=== PATIENT | male | born 1990 | race Caucasian/White ===

== ENCOUNTER 2017-11-02 15:27 | Emergency (ER) | payer SELFPAY ==
--- NOTE | 2017-11-02 16:38 | RAD ---
RADIOGRAPH CHEST 2 VIEWS: HISTORY: A 27-year-old male status post acute traumatic chest pain from fall. FINDINGS: There is no air space density, pulmonary edema, pleural effusion, pneumothorax, or cardiomegaly. IMPRESSION: No acute cardiopulmonary findings. sanam [] POS: [facility]
--- NOTE | 2017-11-02 16:40 | RAD ---
THREE VIEWS OF THE RIGHT SHOULDER: DATE: 11/02/17. COMPARISON: None. HISTORY: Fall, trauma, pain. FINDINGS: There is no widening of the AC or CC interspace. There is no displaced fracture or evidence of dislo cation. IMPRESSION: No acute findings. POS: [facility]
== END 2017-11-02 17:09 | disposition home or self-care (01) ==
LOC: ERS 15:27
DX: S23.41XA Sprain of ribs, initial encounter (principal); F17.210 Nicotine dependence, cigarettes, uncomplicated; W18.2XXA Fall in (into) shower or empty bathtub, initial encounter
CPT/HCPCS: 71046; 99406

== ENCOUNTER 2018-01-02 15:58 | Emergency (ER) | payer SELFPAY ==
--- NOTE | 2018-01-02 17:15 | RAD ---
LEFT SHOULDER THREE VIEWS' 01/02/18 HISTORY: Left shoulder pain. FINDINGS: Acromioclavicular and glenohumeral alignment are maintained. No acute fracture, dislocation, or aggre ssive osseous erosions. IMPRESSION: No acute osseous abnormalities are demonstrated. POS: [facility]
[2018-01-02] MEDS ORDERED: Diazepam 5 MG TAB ONE (17:47)
[2018-01-02] MEDS ORDERED: Ketorolac Tromethamine 30 MG/ML VIAL ONE (18:14)
== END 2018-01-02 18:43 | disposition home or self-care (01) ==
LOC: ERS 15:58
DX: M25.512 Pain in left shoulder (principal); F17.210 Nicotine dependence, cigarettes, uncomplicated
CPT/HCPCS: 96372; J1885

== ENCOUNTER 2023-04-10 11:59 | Emergency (ER) | payer SELFPAY ==
[2023-04-10 12:21] LABS: #Basophils 0.1 thou/uL (0.0-0.2); #Eosinphils 0.3 thou/uL (0.0-0.7); #Monocytes 0.7 thou/uL (0.11-0.59); #Neutrophils 5.6 thou/uL (1.40-6.50); %Basophils 1.1 % (0.0-1.0); %Lymphocytes 14.2 % (21.0-51.0); %Monocytes 8.6 % (0.0-10.0); %Neutrophils 71.7 % (42.0-75.0); Hemoglobin 13.2 g/dL (14.0-18.0); Mean Corpuscular HGB CONC 32.7 g/dL (32.0-36.0); Mean Corpuscular Hemoglobin 29.5 pg (27.0-31.0); Mean Corpuscular Volume 90.2 fl (78.0-98.0); Mean Platelet Volume 10.2 fL (7.4-10.4); Platelet Count 336 10x3/uL (130-400); RBC Distribution Width 15.9 % (11.5-14.5); Red Blood Cell (RBC) Count 4.48 mill/uL (4.70-6.10); White Blood Cell (WBC) Count 7.8 10x3/uL (4.8-10.8)
[2023-04-10 12:47] LABS: ALT (SGPT) 22 U/L (8-55); AST (SGOT) 24 U/L (5-34); Alkaline Phosphatase 79 U/L (40-110); Anion Gap 10 mmol/L (10-20); BUN (Urea Nitrogen) 15 mg/dL (8.9-20.6); Bilirubin, Total 0.5 mg/dL (0.2-1.2); Calc. Creatinine Clearance 0 mL/min (70-130); Calcium 8.8 mg/dL (7.8-10.44); Carbon Dioxide 22 mmol/L (22-29); Chloride 111 mmol/L (98-107); Estimated GFR 90; Globulin 2.8 g/dL (2.4-3.5); Glucose 125 mg/dL (70-105); Lipase 32 U/L (8-78); Potassium 4.2 mmol/L (3.5-5.1); Protein, Total 6.8 g/dL (6.0-8.3); Sodium 139 mmol/L (136-145)
== END 2023-04-10 13:45 | disposition home or self-care (01) ==
LOC: ERS 11:59
DX: R07.9 Chest pain, unspecified (principal); R06.02 Shortness of breath; F17.210 Nicotine dependence, cigarettes, uncomplicated
CPT/HCPCS: 36415; 71046; 80053; 83690; 84484; 85025; 93005

== ENCOUNTER 2023-04-20 17:53 | Inpatient (IN) | payer OTHER, SELFPAY ==
[2023-04-20] MEDS ORDERED: Ondansetron PF 4 MG/2 ML Vial IVP PRN (22:28)
[2023-04-20] MEDS ORDERED: Ondansetron ODT 4 MG TAB PO PRN (22:28)
[2023-04-20 22:46] VITALS: BMI 28.9
[2023-04-20 23:59] LABS: Magnesium 1.8 mg/dL (1.6-2.6)
[2023-04-21 06:50] LABS: #Basophils 0.1 thou/uL (0.0-0.2); #Eosinphils 0.4 thou/uL (0.0-0.7); #Monocytes 0.5 thou/uL (0.11-0.59); #Neutrophils 7.6 thou/uL (1.40-6.50); %Basophils 0.6 % (0.0-1.0); %Eosinophils 3.7 % (0.0-10.0); %Lymphocytes 10.9 % (21.0-51.0); %Monocytes 5.3 % (0.0-10.0); %Neutrophils 79.1 % (42.0-75.0); Hemoglobin 12.3 g/dL (14.0-18.0); Mean Corpuscular HGB CONC 32.3 g/dL (32.0-36.0); Mean Corpuscular Hemoglobin 29.5 pg (27.0-31.0); Mean Corpuscular Volume 91.4 fl (78.0-98.0); Platelet Count 274 10x3/uL (130-400); RBC Distribution Width 17.6 % (11.5-14.5); Red Blood Cell (RBC) Count 4.17 mill/uL (4.70-6.10); White Blood Cell (WBC) Count 9.6 10x3/uL (4.8-10.8)
[2023-04-21 07:13] LABS: ALT (SGPT) 83 U/L (8-55); AST (SGOT) 30 U/L (5-34); Albumin 3.3 g/dL (3.5-5.0); Alkaline Phosphatase 79 U/L (40-110); Anion Gap 15 mmol/L (10-20); BUN (Urea Nitrogen) 17 mg/dL (8.9-20.6); Bilirubin, Total 0.9 mg/dL (0.2-1.2); Calc. Creatinine Clearance 130 mL/min (70-130); Calcium 8.4 mg/dL (7.8-10.44); Carbon Dioxide 20 mmol/L (22-29); Chloride 107 mmol/L (98-107); Estimated GFR 103; Globulin 2.8 g/dL (2.4-3.5); Glucose 102 mg/dL (70-105); Potassium 4.1 mmol/L (3.5-5.1); Protein, Total 6.1 g/dL (6.0-8.3); Sodium 138 mmol/L (136-145)
[2023-04-21] MEDS ORDERED: Furosemide 40 MG/4 ML VIAL SLOW IVP SCH ×3 (09:00→15:00)
[2023-04-21] MEDS: guaiFENesin ER 600 MG TAB PO SCH ×2 (09:58→20:49)
[2023-04-21] MEDS ORDERED: Azithromycin 500 MG in Sodium Chloride 0.9% 250 ML 250 ML IVPB SCH (18:00)
[2023-04-21] MEDS ORDERED: cefTRIAXone\\ROCEPHIN 1 GM in Sodium Chloride 0.9% 100 ML IVPB SCH (18:00)
[2023-04-21] MEDS: Azithromycin 250 MG TAB PO SCH (18:07)
[2023-04-21] MEDS: Carvedilol 3.125 MG TAB PO SCH (18:07)
[2023-04-21] MEDS: cefTRIAXone\\ROCEPHIN 2 GM in Sodium Chloride 0.9% 100 ML IVPB SCH (18:08)
[2023-04-21] MEDS: Sacubitril 24MG/Valsartan 26 MG TAB PO SCH (20:49)
[2023-04-22] MEDS: Furosemide 40 MG/4 ML VIAL SLOW IVP SCH ×2 (05:29→14:38)
[2023-04-22] MEDS: guaiFENesin ER 600 MG TAB PO SCH ×2 (09:13→20:17)
[2023-04-22] MEDS: Sacubitril 24MG/Valsartan 26 MG TAB PO SCH ×2 (09:13→20:18)
[2023-04-22] MEDS: Carvedilol 3.125 MG TAB PO SCH ×2 (09:14→17:45)
[2023-04-22] MEDS: Acetaminophen 325 MG TAB PO PRN (09:14)
[2023-04-22 09:18] LABS: #Basophils 0.1 thou/uL (0.0-0.2); #Eosinphils 0.7 thou/uL (0.0-0.7); #Monocytes 1.2 thou/uL (0.11-0.59); #Neutrophils 8.9 thou/uL (1.40-6.50); %Basophils 0.9 % (0.0-1.0); %Eosinophils 5.9 % (0.0-10.0); %Lymphocytes 9.7 % (21.0-51.0); %Monocytes 9.8 % (0.0-10.0); %Neutrophils 73.1 % (42.0-75.0); Mean Corpuscular HGB CONC 32.5 g/dL (32.0-36.0); Mean Corpuscular Hemoglobin 29.3 pg (27.0-31.0); Mean Corpuscular Volume 90.3 fl (78.0-98.0); Mean Platelet Volume 9.3 fL (7.4-10.4); Platelet Count 331 10x3/uL (130-400); RBC Distribution Width 18.3 % (11.5-14.5); Red Blood Cell (RBC) Count 5.56 mill/uL (4.70-6.10); White Blood Cell (WBC) Count 12.1 10x3/uL (4.8-10.8)
[2023-04-22 09:29] LABS: Hemoglobin 16.3 g/dL (14.0-18.0)
[2023-04-22 09:47] LABS: Anion Gap 15 mmol/L (10-20); BUN (Urea Nitrogen) 17 mg/dL (8.9-20.6); Calc. Creatinine Clearance 127 mL/min (70-130); Calcium 9.9 mg/dL (7.8-10.44); Carbon Dioxide 29 mmol/L (22-29); Chloride 100 mmol/L (98-107); Estimated GFR 100; Glucose 82 mg/dL (70-105); Sodium 140 mmol/L (136-145)
[2023-04-22] MEDS ORDERED: Carvedilol 3.125 MG TAB PO SCH ×2 (11:02→11:15)
[2023-04-22] MEDS: Azithromycin 250 MG TAB PO SCH (17:44)
[2023-04-22] MEDS: cefTRIAXone\\ROCEPHIN 2 GM in Sodium Chloride 0.9% 100 ML IVPB SCH (17:45)
[2023-04-22] MEDS ORDERED: Azithromycin 250 MG TAB PO SCH (18:00)
[2023-04-23] MEDS: Furosemide 40 MG/4 ML VIAL SLOW IVP SCH ×2 (06:45→14:41)
[2023-04-23] MEDS: Carvedilol 3.125 MG TAB PO SCH ×2 (08:51→17:54)
[2023-04-23] MEDS: Sacubitril 24MG/Valsartan 26 MG TAB PO SCH ×2 (10:05→20:56)
[2023-04-23] MEDS: guaiFENesin ER 600 MG TAB PO SCH ×2 (10:05→20:56)
[2023-04-23] MEDS: cefTRIAXone\\ROCEPHIN 2 GM in Sodium Chloride 0.9% 100 ML IVPB SCH (17:54)
[2023-04-23 18:34] LABS: #Basophils 0.1 thou/uL (0.0-0.2); #Eosinphils 0.7 thou/uL (0.0-0.7); #Monocytes 1.1 thou/uL (0.11-0.59); %Basophils 1.3 % (0.0-1.0); %Eosinophils 6.8 % (0.0-10.0); %Lymphocytes 17.6 % (21.0-51.0); %Neutrophils 62.2 % (42.0-75.0); Hemoglobin 17.7 g/dL (14.0-18.0); Mean Corpuscular HGB CONC 32.2 g/dL (32.0-36.0); Mean Corpuscular Hemoglobin 29.7 pg (27.0-31.0); Mean Corpuscular Volume 92.1 fl (78.0-98.0); Mean Platelet Volume 9.3 fL (7.4-10.4); Platelet Count 350 10x3/uL (130-400); RBC Distribution Width 18.5 % (11.5-14.5); Red Blood Cell (RBC) Count 5.96 mill/uL (4.70-6.10); White Blood Cell (WBC) Count 9.7 10x3/uL (4.8-10.8)
[2023-04-23 18:56] LABS: Anion Gap 20 mmol/L (10-20); BUN (Urea Nitrogen) 22 mg/dL (8.9-20.6); Calc. Creatinine Clearance 104 mL/min (70-130); Calcium 10.1 mg/dL (7.8-10.44); Carbon Dioxide 23 mmol/L (22-29); Chloride 103 mmol/L (98-107); Estimated GFR 85; Glucose 109 mg/dL (70-105); Potassium 4.5 mmol/L (3.5-5.1); Sodium 141 mmol/L (136-145)
[2023-04-24 04:32] LABS: #Basophils 0.1 thou/uL (0.0-0.2); #Eosinphils 0.7 thou/uL (0.0-0.7); #Monocytes 1.1 thou/uL (0.11-0.59); #Neutrophils 5.7 thou/uL (1.40-6.50); %Basophils 1.4 % (0.0-1.0); %Eosinophils 6.8 % (0.0-10.0); %Lymphocytes 18.5 % (21.0-51.0); %Neutrophils 60.2 % (42.0-75.0); Hemoglobin 17.4 g/dL (14.0-18.0); Mean Corpuscular HGB CONC 32.5 g/dL (32.0-36.0); Mean Corpuscular Hemoglobin 29.3 pg (27.0-31.0); Mean Corpuscular Volume 90.2 fl (78.0-98.0); Mean Platelet Volume 9.3 fL (7.4-10.4); Platelet Count 368 10x3/uL (130-400); RBC Distribution Width 18.4 % (11.5-14.5); Red Blood Cell (RBC) Count 5.94 mill/uL (4.70-6.10); White Blood Cell (WBC) Count 9.5 10x3/uL (4.8-10.8)
[2023-04-24 05:07] LABS: Anion Gap 13 mmol/L (10-20); BUN (Urea Nitrogen) 24 mg/dL (8.9-20.6); Calc. Creatinine Clearance 116 mL/min (70-130); Calcium 9.8 mg/dL (7.8-10.44); Carbon Dioxide 29 mmol/L (22-29); Chloride 101 mmol/L (98-107); Estimated GFR 97; Glucose 106 mg/dL (70-105); Potassium 4.7 mmol/L (3.5-5.1); Sodium 138 mmol/L (136-145)
[2023-04-24] MEDS: Furosemide 40 MG/4 ML VIAL SLOW IVP SCH ×2 (06:45→13:12)
[2023-04-24] MEDS: Sacubitril 24MG/Valsartan 26 MG TAB PO SCH ×2 (09:03→21:17)
[2023-04-24] MEDS: guaiFENesin ER 600 MG TAB PO SCH ×2 (09:03→21:18)
[2023-04-24] MEDS: Carvedilol 3.125 MG TAB PO SCH ×2 (09:04→17:40)
[2023-04-24] MEDS: cefTRIAXone\\ROCEPHIN 2 GM in Sodium Chloride 0.9% 100 ML IVPB SCH (17:39)
[2023-04-25 04:14] LABS: #Basophils 0.1 thou/uL (0.0-0.2); #Eosinphils 0.8 thou/uL (0.0-0.7); #Monocytes 1.2 thou/uL (0.11-0.59); #Neutrophils 5.4 thou/uL (1.40-6.50); %Basophils 1.3 % (0.0-1.0); %Eosinophils 8.1 % (0.0-10.0); %Lymphocytes 22.1 % (21.0-51.0); %Monocytes 11.9 % (0.0-10.0); %Neutrophils 56.1 % (42.0-75.0); Hemoglobin 17.5 g/dL (14.0-18.0); Mean Corpuscular HGB CONC 32.6 g/dL (32.0-36.0); Mean Corpuscular Hemoglobin 29.5 pg (27.0-31.0); Mean Corpuscular Volume 90.4 fl (78.0-98.0); Mean Platelet Volume 9.2 fL (7.4-10.4); Platelet Count 375 10x3/uL (130-400); RBC Distribution Width 18.3 % (11.5-14.5); Red Blood Cell (RBC) Count 5.93 mill/uL (4.70-6.10); White Blood Cell (WBC) Count 9.7 10x3/uL (4.8-10.8)
[2023-04-25 04:35] LABS: Anion Gap 15 mmol/L (10-20); BUN (Urea Nitrogen) 34 mg/dL (8.9-20.6); Calc. Creatinine Clearance 93 mL/min (70-130); Calcium 9.7 mg/dL (7.8-10.44); Carbon Dioxide 28 mmol/L (22-29); Chloride 97 mmol/L (98-107); Estimated GFR 77; Glucose 113 mg/dL (70-105); Potassium 4.2 mmol/L (3.5-5.1); Sodium 136 mmol/L (136-145)
[2023-04-25] MEDS: Furosemide 40 MG TAB PO SCH (08:29)
[2023-04-25] MEDS: Carvedilol 3.125 MG TAB PO SCH ×2 (08:29→17:41)
[2023-04-25] MEDS: Sacubitril 24MG/Valsartan 26 MG TAB PO SCH ×2 (08:29→21:25)
[2023-04-25] MEDS: guaiFENesin ER 600 MG TAB PO SCH ×2 (08:29→21:25)
[2023-04-25] MEDS: Acetaminophen 325 MG TAB PO PRN (11:26)
[2023-04-25] MEDS: cefTRIAXone\\ROCEPHIN 2 GM in Sodium Chloride 0.9% 100 ML IVPB SCH (17:41)
[2023-04-26] MEDS: Furosemide 40 MG TAB PO SCH (09:00)
[2023-04-26] MEDS: guaiFENesin ER 600 MG TAB PO SCH ×2 (09:00→20:12)
[2023-04-26] MEDS: Carvedilol 3.125 MG TAB PO SCH ×2 (09:00→17:06)
[2023-04-26] MEDS: Sacubitril 24MG/Valsartan 26 MG TAB PO SCH ×2 (09:00→20:33)
[2023-04-26] MEDS ORDERED: Lorazepam 2 MG/ML VIAL SLOW IVP SCH (10:30)
[2023-04-26 10:56] LABS: #Basophils 0.1 thou/uL (0.0-0.2); #Eosinphils 0.6 thou/uL (0.0-0.7); #Monocytes 0.9 thou/uL (0.11-0.59); %Basophils 1.4 % (0.0-1.0); %Eosinophils 6.8 % (0.0-10.0); %Lymphocytes 16.8 % (21.0-51.0); %Neutrophils 64.6 % (42.0-75.0); Hemoglobin 17.7 g/dL (14.0-18.0); Mean Corpuscular HGB CONC 32.5 g/dL (32.0-36.0); Mean Corpuscular Hemoglobin 29.4 pg (27.0-31.0); Mean Corpuscular Volume 90.5 fl (78.0-98.0); Mean Platelet Volume 9.2 fL (7.4-10.4); Platelet Count 339 10x3/uL (130-400); RBC Distribution Width 18.1 % (11.5-14.5); Red Blood Cell (RBC) Count 6.02 mill/uL (4.70-6.10); White Blood Cell (WBC) Count 9.2 10x3/uL (4.8-10.8)
[2023-04-26 11:21] LABS: Anion Gap 15 mmol/L (10-20); BUN (Urea Nitrogen) 23 mg/dL (8.9-20.6); Calc. Creatinine Clearance 109 mL/min (70-130); Calcium 9.3 mg/dL (7.8-10.44); Carbon Dioxide 26 mmol/L (22-29); Chloride 103 mmol/L (98-107); Estimated GFR 95; Glucose 115 mg/dL (70-105); Potassium 4.8 mmol/L (3.5-5.1); Sodium 139 mmol/L (136-145)
[2023-04-26 19:07] LABS: Amphetamine Not Detected (NotDetected); Barbiturates Screen Not Detected (NotDetected); Benzodiazepine Screen Not Detected (NotDetected); Cocaine Metabolite Screen Not Detected (NotDetected); Methadone Not Detected (NotDetected); Methamphetamine Not Detected (NotDetected); Opiate Screen Not Detected (NotDetected); Oxycodone Screen Not Detected (NotDetected); Phencyclidine (PCP) Not Detected (NotDetected); THC/Cannabinoid Screen Not Detected (NotDetected); Tricyclic Screen Not Detected (NotDetected)
[2023-04-27 08:53] LABS: #Basophils 0.1 thou/uL (0.0-0.2); #Eosinphils 0.6 thou/uL (0.0-0.7); #Neutrophils 4.3 thou/uL (1.40-6.50); %Basophils 1.6 % (0.0-1.0); %Eosinophils 7.8 % (0.0-10.0); %Lymphocytes 22.6 % (21.0-51.0); %Neutrophils 54.6 % (42.0-75.0); Hemoglobin 16.2 g/dL (14.0-18.0); Mean Corpuscular Hemoglobin 29.5 pg (27.0-31.0); Mean Platelet Volume 9.2 fL (7.4-10.4); Platelet Count 326 10x3/uL (130-400); RBC Distribution Width 16.8 % (11.5-14.5); White Blood Cell (WBC) Count 7.9 10x3/uL (4.8-10.8)
[2023-04-27 09:15] LABS: Anion Gap 15 mmol/L (10-20); BUN (Urea Nitrogen) 23 mg/dL (8.9-20.6); Calc. Creatinine Clearance 108 mL/min (70-130); Calcium 8.9 mg/dL (7.8-10.44); Carbon Dioxide 25 mmol/L (22-29); Chloride 106 mmol/L (98-107); Estimated GFR 94; Glucose 101 mg/dL (70-105); Potassium 5.2 mmol/L (3.5-5.1); Sodium 141 mmol/L (136-145)
[2023-04-27] MEDS: Sacubitril 24MG/Valsartan 26 MG TAB PO SCH ×2 (11:08→21:52)
[2023-04-27] MEDS: guaiFENesin ER 600 MG TAB PO SCH ×2 (11:08→19:39)
[2023-04-27] MEDS: Furosemide 40 MG TAB PO SCH (11:08)
[2023-04-27] MEDS: Carvedilol 3.125 MG TAB PO SCH ×2 (11:08→17:32)
[2023-04-28 09:10] LABS: #Basophils 0.1 thou/uL (0.0-0.2); #Eosinphils 0.6 thou/uL (0.0-0.7); #Monocytes 1.1 thou/uL (0.11-0.59); #Neutrophils 4.3 thou/uL (1.40-6.50); %Basophils 1.7 % (0.0-1.0); %Eosinophils 7.1 % (0.0-10.0); %Lymphocytes 21.5 % (21.0-51.0); %Monocytes 13.7 % (0.0-10.0); %Neutrophils 55.6 % (42.0-75.0); Mean Corpuscular HGB CONC 32.1 g/dL (32.0-36.0); Mean Corpuscular Hemoglobin 29.5 pg (27.0-31.0); Mean Corpuscular Volume 92.1 fl (78.0-98.0); Mean Platelet Volume 9.3 fL (7.4-10.4); Platelet Count 322 10x3/uL (130-400); RBC Distribution Width 16.8 % (11.5-14.5); Red Blood Cell (RBC) Count 5.42 mill/uL (4.70-6.10); White Blood Cell (WBC) Count 7.7 10x3/uL (4.8-10.8)
[2023-04-28] MEDS: Furosemide 40 MG TAB PO SCH (09:19)
[2023-04-28] MEDS: guaiFENesin ER 600 MG TAB PO SCH (09:19)
[2023-04-28] MEDS: Sacubitril 24MG/Valsartan 26 MG TAB PO SCH (09:19)
[2023-04-28] MEDS: Carvedilol 3.125 MG TAB PO SCH (09:20)
[2023-04-28 09:29] LABS: Anion Gap 13 mmol/L (10-20); BUN (Urea Nitrogen) 22 mg/dL (8.9-20.6); Calc. Creatinine Clearance 113 mL/min (70-130); Calcium 9.3 mg/dL (7.8-10.44); Carbon Dioxide 25 mmol/L (22-29); Chloride 106 mmol/L (98-107); Estimated GFR 98; Glucose 100 mg/dL (70-105); Potassium 5.1 mmol/L (3.5-5.1); Sodium 139 mmol/L (136-145)
[2023-04-28 16:09] VITALS: BP 127/76; TEMP 97.7
== END 2023-04-28 19:36 | disposition home or self-care (01) | DRG 292 ==
LOC: 2NO 17:53
PROVIDERS: ADMIT Physician Assistant; ATTEND Internal Medicine
DX: I50.23 Acute on chronic systolic (congestive) heart failure (principal); I42.8 Other cardiomyopathies; F15.10 Other stimulant abuse, uncomplicated; F17.210 Nicotine dependence, cigarettes, uncomplicated; I27.20 Pulmonary hypertension, unspecified; G40.909 Epilepsy, unspecified, not intractable, without status epilepticus; I08.1 Rheumatic disorders of both mitral and tricuspid valves; F41.0 Panic disorder [episodic paroxysmal anxiety]; Z79.899 Other long term (current) drug therapy; Z91.148 Patient's other noncompliance with medication regimen for other reason; Z71.6 Tobacco abuse counseling; Z71.51 Drug abuse counseling and surveillance of drug abuser
CPT/HCPCS: 36415; 80048; 80053; 80306; 83735; 83880; 84145; 84443; 85025; 93005; 93010; 93306; 93970; J0696; J1650; J1940; J2060; J3490

== ENCOUNTER 2023-05-27 14:21 | Inpatient (IN) | payer OTHER ==
[2023-05-27 14:56] LABS: #Basophils 0.1 thou/uL (0.0-0.2); #Eosinphils 0.3 thou/uL (0.0-0.7); #Monocytes 1.1 thou/uL (0.11-0.59); #Neutrophils 5.5 thou/uL (1.40-6.50); %Eosinophils 3.4 % (0.0-10.0); %Lymphocytes 15.9 % (21.0-51.0); %Monocytes 13.4 % (0.0-10.0); %Neutrophils 65.8 % (42.0-75.0); Hematocrit 48.4 % (42.0-52.0); Hemoglobin 16.2 g/dL (14.0-18.0); Mean Corpuscular HGB CONC 33.5 g/dL (32.0-36.0); Mean Corpuscular Hemoglobin 29.8 pg (27.0-31.0); Mean Corpuscular Volume 89.1 fl (78.0-98.0); Mean Platelet Volume 9.5 fL (7.4-10.4); Platelet Count 260 10x3/uL (130-400); RBC Distribution Width 15.7 % (11.5-14.5); Red Blood Cell (RBC) Count 5.43 mill/uL (4.70-6.10); White Blood Cell (WBC) Count 8.3 10x3/uL (4.8-10.8)
[2023-05-27 15:17] LABS: ALT (SGPT) 38 U/L (8-55); AST (SGOT) 29 U/L (5-34); Albumin 4.4 g/dL (3.5-5.0); Alkaline Phosphatase 82 U/L (40-110); Anion Gap 16 mmol/L (10-20); BUN (Urea Nitrogen) 17 mg/dL (8.9-20.6); Bilirubin, Total 0.2 mg/dL (0.2-1.2); Calc. Creatinine Clearance 0 mL/min (70-130); Calcium 9.3 mg/dL (7.8-10.44); Carbon Dioxide 25 mmol/L (22-29); Chloride 102 mmol/L (98-107); Estimated GFR 78; Globulin 3.6 g/dL (2.4-3.5); Glucose 114 mg/dL (70-105); Potassium 4.1 mmol/L (3.5-5.1); Sodium 139 mmol/L (136-145)
[2023-05-27] MEDS ORDERED: Aspirin Chewable 81 MG TAB ONE (16:01)
[2023-05-27] MEDS ORDERED: Acetaminophen 325 MG TAB PO PRN (16:48)
[2023-05-27] MEDS ORDERED: Ondansetron PF 4 MG/2 ML Vial IVP PRN (16:48)
[2023-05-27] MEDS ORDERED: Ondansetron ODT 4 MG TAB PO PRN (16:48)
[2023-05-27 19:36] VITALS: BMI 30.4
[2023-05-27] MEDS: guaiFENesin ER 600 MG TAB PO SCH (20:03)
[2023-05-27] MEDS: Carvedilol 3.125 MG TAB PO SCH (20:03)
[2023-05-27] MEDS: Sacubitril 24MG/Valsartan 26 MG TAB PO SCH (20:03)
[2023-05-27 22:35] LABS: Amphetamine Not Detected (NotDetected); Barbiturates Screen Not Detected (NotDetected); Benzodiazepine Screen Not Detected (NotDetected); Cocaine Metabolite Screen Not Detected (NotDetected); Methadone Not Detected (NotDetected); Methamphetamine Not Detected (NotDetected); Opiate Screen Not Detected (NotDetected); Oxycodone Screen Not Detected (NotDetected); Phencyclidine (PCP) Not Detected (NotDetected); THC/Cannabinoid Screen Detected (NotDetected); Tricyclic Screen Not Detected (NotDetected)
[2023-05-28 05:27] LABS: #Basophils 0.1 thou/uL (0.0-0.2); #Eosinphils 0.3 thou/uL (0.0-0.7); #Monocytes 1.2 thou/uL (0.11-0.59); #Neutrophils 4.1 thou/uL (1.40-6.50); %Basophils 1.1 % (0.0-1.0); %Eosinophils 4.1 % (0.0-10.0); %Lymphocytes 23.7 % (21.0-51.0); %Monocytes 16.2 % (0.0-10.0); %Neutrophils 54.5 % (42.0-75.0); Hematocrit 46.2 % (42.0-52.0); Hemoglobin 15.1 g/dL (14.0-18.0); Mean Corpuscular HGB CONC 32.7 g/dL (32.0-36.0); Mean Corpuscular Hemoglobin 29.6 pg (27.0-31.0); Mean Corpuscular Volume 90.6 fl (78.0-98.0); Mean Platelet Volume 9.7 fL (7.4-10.4); Platelet Count 245 10x3/uL (130-400); RBC Distribution Width 15.7 % (11.5-14.5); White Blood Cell (WBC) Count 7.6 10x3/uL (4.8-10.8)
[2023-05-28 05:56] LABS: Anion Gap 14 mmol/L (10-20); BUN (Urea Nitrogen) 19 mg/dL (8.9-20.6); Calc. Creatinine Clearance 124 mL/min (70-130); Calcium 9.1 mg/dL (7.8-10.44); Carbon Dioxide 26 mmol/L (22-29); Chloride 103 mmol/L (98-107); Estimated GFR 89; Glucose 109 mg/dL (70-105); Sodium 139 mmol/L (136-145)
[2023-05-28 08:51] LABS: Troponin I Less than 0.010 ng/mL (< 0.028)
[2023-05-28] MEDS: Sacubitril 24MG/Valsartan 26 MG TAB PO SCH ×2 (09:12→21:34)
[2023-05-28] MEDS: Furosemide 40 MG TAB PO SCH (09:12)
[2023-05-28] MEDS: guaiFENesin ER 600 MG TAB PO SCH ×2 (09:12→21:34)
[2023-05-28] MEDS: Carvedilol 3.125 MG TAB PO SCH ×2 (09:12→16:56)
[2023-05-28] MEDS ORDERED: Spironolactone 25 MG TAB PO SCH (09:30)
[2023-05-28] MEDS ORDERED: Iopamidol-370 76% 500 ML MDV (1 ML CHARGE) ONE (09:37)
[2023-05-29 05:37] LABS: Hematocrit 43.4 % (42.0-52.0); Hemoglobin 14.3 g/dL (14.0-18.0); Mean Corpuscular HGB CONC 32.9 g/dL (32.0-36.0); Mean Corpuscular Hemoglobin 29.8 pg (27.0-31.0); Mean Corpuscular Volume 90.4 fl (78.0-98.0); Mean Platelet Volume 9.9 fL (7.4-10.4); Platelet Count 245 10x3/uL (130-400); RBC Distribution Width 15.5 % (11.5-14.5); White Blood Cell (WBC) Count 7.2 10x3/uL (4.8-10.8)
[2023-05-29 05:46] LABS: Delete Auto Diff?? YES; Manual Diff?? YES
[2023-05-29 05:56] LABS: Anion Gap 13 mmol/L (10-20); BUN (Urea Nitrogen) 23 mg/dL (8.9-20.6); Calc. Creatinine Clearance 143 mL/min (70-130); Calcium 9.5 mg/dL (7.8-10.44); Carbon Dioxide 25 mmol/L (22-29); Chloride 106 mmol/L (98-107); Estimated GFR 105; Glucose 98 mg/dL (70-105); Potassium 4.4 mmol/L (3.5-5.1); Sodium 140 mmol/L (136-145)
[2023-05-29 06:12] LABS: Band 12 % (5-11); CellaVision Operator ID LAB.CLH1; Eosinophils 7 % (0-10); Lymphocytes 33 % (21-51); Monocytes 11 % (0-10); Neutrophil 36 % (42-75); Platelet Adequacy Comment Platelets Normal; Reactive Lymphocytes 1 % (0-10); Total Cell Count 100
[2023-05-29] MEDS: Furosemide 40 MG TAB PO SCH (06:12)
[2023-05-29] MEDS: Carvedilol 3.125 MG TAB PO SCH ×2 (09:02→17:52)
[2023-05-29] MEDS: Spironolactone 25 MG TAB PO SCH (09:02)
[2023-05-29] MEDS: guaiFENesin ER 600 MG TAB PO SCH ×2 (09:03→20:46)
[2023-05-29] MEDS: Sacubitril 24MG/Valsartan 26 MG TAB PO SCH ×2 (09:03→20:46)
[2023-05-30] MEDS: Furosemide 40 MG TAB PO SCH (06:16)
[2023-05-30 09:26] LABS: #Basophils 0.1 thou/uL (0.0-0.2); #Eosinphils 0.5 thou/uL (0.0-0.7); #Monocytes 1.2 thou/uL (0.11-0.59); #Neutrophils 3.5 thou/uL (1.40-6.50); %Basophils 1.2 % (0.0-1.0); %Eosinophils 6.5 % (0.0-10.0); %Lymphocytes 31.4 % (21.0-51.0); %Monocytes 15.4 % (0.0-10.0); Hematocrit 48.3 % (42.0-52.0); Mean Corpuscular HGB CONC 33.1 g/dL (32.0-36.0); Mean Corpuscular Hemoglobin 29.7 pg (27.0-31.0); Mean Corpuscular Volume 89.8 fl (78.0-98.0); Mean Platelet Volume 9.6 fL (7.4-10.4); Platelet Count 252 10x3/uL (130-400); RBC Distribution Width 15.7 % (11.5-14.5); Red Blood Cell (RBC) Count 5.38 mill/uL (4.70-6.10); White Blood Cell (WBC) Count 7.7 10x3/uL (4.8-10.8)
[2023-05-30] MEDS: guaiFENesin ER 600 MG TAB PO SCH ×2 (09:51→20:57)
[2023-05-30] MEDS: Spironolactone 25 MG TAB PO SCH (09:51)
[2023-05-30] MEDS: Sacubitril 24MG/Valsartan 26 MG TAB PO SCH ×2 (09:52→20:57)
[2023-05-30] MEDS: Carvedilol 3.125 MG TAB PO SCH ×2 (09:52→17:32)
[2023-05-30 09:56] LABS: Anion Gap 13 mmol/L (10-20); BUN (Urea Nitrogen) 15 mg/dL (8.9-20.6); Calc. Creatinine Clearance 131 mL/min (70-130); Calcium 9.4 mg/dL (7.8-10.44); Carbon Dioxide 27 mmol/L (22-29); Chloride 101 mmol/L (98-107); Estimated GFR 95; Glucose 103 mg/dL (70-105); Potassium 4.4 mmol/L (3.5-5.1); Sodium 137 mmol/L (136-145)
[2023-05-30] MEDS ORDERED: Carvedilol 3.125 MG TAB PO SCH (16:20)
[2023-05-31] MEDS: Furosemide 40 MG TAB PO SCH (06:25)
[2023-05-31 08:07] LABS: Hematocrit 47.2 % (42.0-52.0); Hemoglobin 15.8 g/dL (14.0-18.0); Mean Corpuscular HGB CONC 33.5 g/dL (32.0-36.0); Mean Corpuscular Hemoglobin 29.9 pg (27.0-31.0); Mean Corpuscular Volume 89.4 fl (78.0-98.0); Mean Platelet Volume 9.9 fL (7.4-10.4); Platelet Count 281 10x3/uL (130-400); RBC Distribution Width 15.4 % (11.5-14.5); Red Blood Cell (RBC) Count 5.28 mill/uL (4.70-6.10); White Blood Cell (WBC) Count 8.1 10x3/uL (4.8-10.8)
[2023-05-31 08:10] LABS: Delete Auto Diff?? YES; Manual Diff?? YES
[2023-05-31 08:30] LABS: Anion Gap 16 mmol/L (10-20); BUN (Urea Nitrogen) 16 mg/dL (8.9-20.6); Calc. Creatinine Clearance 129 mL/min (70-130); Calcium 9.2 mg/dL (7.8-10.44); Carbon Dioxide 26 mmol/L (22-29); Chloride 101 mmol/L (98-107); Estimated GFR 92; Glucose 110 mg/dL (70-105); Magnesium 1.9 mg/dL (1.6-2.6); Potassium 4.5 mmol/L (3.5-5.1); Sodium 138 mmol/L (136-145)
[2023-05-31 08:51] LABS: Band 1 % (5-11); Lymphocytes 30 % (21-51); Monocytes 10 % (0-10); Neutrophil 58 % (42-75); Platelet Adequacy Comment Platelets Normal; Polychromasia SLIGHT = 2-3 cells (100X) (0-2/hpf); Reactive Lymphocytes 1 % (0-10)
[2023-05-31] MEDS: Sacubitril 24MG/Valsartan 26 MG TAB PO SCH ×2 (09:11→21:23)
[2023-05-31] MEDS: Carvedilol 3.125 MG TAB PO SCH ×2 (09:12→17:03)
[2023-05-31] MEDS: Spironolactone 25 MG TAB PO SCH (09:12)
[2023-05-31] MEDS: guaiFENesin ER 600 MG TAB PO SCH ×2 (09:12→21:23)
[2023-05-31] MEDS ORDERED: Magnesium Oxide 400 MG TAB PO SCH (12:00)
[2023-06-01 05:18] LABS: #Basophils 0.1 thou/uL (0.0-0.2); #Eosinphils 0.4 thou/uL (0.0-0.7); #Neutrophils 4.3 thou/uL (1.40-6.50); %Basophils 1.1 % (0.0-1.0); %Eosinophils 4.8 % (0.0-10.0); %Monocytes 11.3 % (0.0-10.0); %Neutrophils 50.2 % (42.0-75.0); Hematocrit 44.1 % (42.0-52.0); Hemoglobin 14.8 g/dL (14.0-18.0); Mean Corpuscular HGB CONC 33.6 g/dL (32.0-36.0); Mean Corpuscular Hemoglobin 29.8 pg (27.0-31.0); Mean Corpuscular Volume 88.7 fl (78.0-98.0); Mean Platelet Volume 9.8 fL (7.4-10.4); Platelet Count 254 10x3/uL (130-400); RBC Distribution Width 15.4 % (11.5-14.5); Red Blood Cell (RBC) Count 4.97 mill/uL (4.70-6.10); White Blood Cell (WBC) Count 8.5 10x3/uL (4.8-10.8)
[2023-06-01 05:46] LABS: Anion Gap 11 mmol/L (10-20); BUN (Urea Nitrogen) 22 mg/dL (8.9-20.6); Calc. Creatinine Clearance 109 mL/min (70-130); Carbon Dioxide 27 mmol/L (22-29); Chloride 104 mmol/L (98-107); Estimated GFR 76; Glucose 113 mg/dL (70-105); Potassium 4.3 mmol/L (3.5-5.1); Sodium 138 mmol/L (136-145)
[2023-06-01] MEDS ORDERED: Magnesium Oxide 400 MG TAB PO SCH (09:00)
[2023-06-01] MEDS: guaiFENesin ER 600 MG TAB PO SCH (09:32)
[2023-06-01] MEDS: Spironolactone 25 MG TAB PO SCH (09:32)
[2023-06-01] MEDS: Carvedilol 3.125 MG TAB PO SCH ×2 (09:32→16:03)
[2023-06-01] MEDS: Sacubitril 24MG/Valsartan 26 MG TAB PO SCH (09:32)
[2023-06-01] MEDS: Furosemide 40 MG TAB PO SCH (09:32)
[2023-06-01 21:05] VITALS: BP 132/75; TEMP 97.6
== END 2023-06-01 21:11 | disposition home or self-care (01) | DRG 392 ==
LOC: ERS 14:21 → 2SW 16:51 → OBSVTOIN 05-29 08:53
PROVIDERS: ADMIT Family Medicine; ATTEND Internal Medicine Geriatric Medicine
DX: K20.80 Other esophagitis without bleeding (principal); I47.1 Supraventricular tachycardia; I50.20 Unspecified systolic (congestive) heart failure; I25.5 Ischemic cardiomyopathy; R68.84 Jaw pain; F15.10 Other stimulant abuse, uncomplicated; F17.210 Nicotine dependence, cigarettes, uncomplicated; Q89.2 Congenital malformations of other endocrine glands; Z79.899 Other long term (current) drug therapy; Z83.3 Family history of diabetes mellitus; Z98.890 Other specified postprocedural states; G40.909 Epilepsy, unspecified, not intractable, without status epilepticus; I27.20 Pulmonary hypertension, unspecified
CPT/HCPCS: 36415; 70491; 71045; 74230; 80048; 80053; 80306; 83735; 83880; 84484; 85025; 93005; 93306; G0378; Q9967

== ENCOUNTER 2024-07-08 11:06 | Inpatient (IN) | payer OTHER ==
[2024-07-08] MEDS ORDERED: Aspirin Chewable 81 MG TAB ONE (11:45)
[2024-07-08] MEDS ORDERED: Famotidine/PF 20 mg/2ml Vial ONE (11:47)
[2024-07-08 11:50] LABS: #Basophils 0.07 10x3/uL (0.0-0.2); %Basophils 0.9 % (0.0-1.0); %Eosinophils 7.6 % (0.0-10.0); %Lymphocytes 19.2 % (21.0-51.0); %Monocytes 10.5 % (0.0-10.0); %Neutrophils 61.5 % (42.0-75.0); Hematocrit 52.6 % (42.0-52.0); Hemoglobin 17.9 g/dL (14.0-18.0); Mean Corpuscular Hemoglobin 31.1 pg (27.0-31.0); Mean Corpuscular Volume 91.5 fL (78.0-98.0); Platelet Count 313 10x3/uL (130-400); RBC Distribution Width 13.2 % (11.5-14.5); Red Blood Cell (RBC) Count 5.75 mill/uL (4.70-6.10)
[2024-07-08 12:09] LABS: ALT (SGPT) 24 U/L (8-55); AST (SGOT) 22 U/L (5-34); Alkaline Phosphatase 86 U/L (40-110); Anion Gap 15 mmol/L (10-20); BUN (Urea Nitrogen) 14 mg/dL (8.9-20.6); Bilirubin, Total 0.3 mg/dL (0.2-1.2); Calc. Creatinine Clearance 0 mL/min (70-130); Calcium 9.7 mg/dL (7.8-10.44); Carbon Dioxide 26 mmol/L (22-29); Chloride 105 mmol/L (98-107); Estimated GFR 92; Globulin 4.2 g/dL (2.4-3.5); Glucose 115 mg/dL (70-105); Lipase 30 U/L (8-78); Potassium 4.5 mmol/L (3.5-5.1); Protein, Total 8.2 g/dL (6.0-8.3); Sodium 141 mmol/L (136-145)
[2024-07-08 12:14] LABS: Troponin I Less than 0.010 ng/mL (< 0.028)
[2024-07-08] MEDS ORDERED: Bisacodyl 5 MG TAB PO PRN (13:59)
[2024-07-08 15:35] LABS: Magnesium 2.1 mg/dL (1.6-2.6); Phosphorus 2.7 mg/dL (2.3-4.7)
[2024-07-08 15:36] LABS: Troponin I Less than 0.010 ng/mL (< 0.028)
[2024-07-08 16:48] LABS: Hemoglobin A1c 5.7 % (4.0-6.0)
[2024-07-08] MEDS ORDERED: Carvedilol 6.25 MG TAB ONE (17:14)
[2024-07-08] MEDS: Carvedilol 3.125 MG TAB PO SCH (17:17)
[2024-07-08 18:09] LABS: Troponin I Less than 0.010 ng/mL (< 0.028)
[2024-07-08 20:41] VITALS: BMI 29.0
[2024-07-08] MEDS: Sacubitril 24MG/Valsartan 26 MG TAB PO SCH (22:03)
[2024-07-09 05:18] LABS: #Basophils 0.09 10x3/uL (0.0-0.2); %Basophils 1.1 % (0.0-1.0); %Eosinophils 7.7 % (0.0-10.0); %Lymphocytes 24.9 % (21.0-51.0); %Monocytes 11.3 % (0.0-10.0); %Neutrophils 54.6 % (42.0-75.0); Hematocrit 49.9 % (42.0-52.0); Hemoglobin 16.4 g/dL (14.0-18.0); Mean Corpuscular HGB CONC 32.9 g/dL (32.0-36.0); Mean Corpuscular Hemoglobin 31.8 pg (27.0-31.0); Mean Corpuscular Volume 96.7 fL (78.0-98.0); Mean Platelet Volume 10.1 fL (7.4-10.4); Platelet Count 303 10x3/uL (130-400); RBC Distribution Width 13.1 % (11.5-14.5); Red Blood Cell (RBC) Count 5.16 mill/uL (4.70-6.10)
[2024-07-09 05:39] LABS: ALT (SGPT) 27 U/L (8-55); AST (SGOT) 25 U/L (5-34); Albumin 3.5 g/dL (3.5-5.0); Alkaline Phosphatase 78 U/L (40-110); Anion Gap 15 mmol/L (10-20); BUN (Urea Nitrogen) 15 mg/dL (8.9-20.6); Bilirubin, Total 0.2 mg/dL (0.2-1.2); Calc. Creatinine Clearance 128 mL/min (70-130); Calcium 9.5 mg/dL (7.8-10.44); Carbon Dioxide 22 mmol/L (22-29); Cardiac Risk 4.4 (Less than 4.5); Chloride 109 mmol/L (98-107); Cholesterol 173 mg/dl (< 200 Desired); Estimated GFR 98; Globulin 3.6 g/dL (2.4-3.5); Glucose 112 mg/dL (70-105); HDL Cholesterol 39 mg/dL (>60 Neg Risk); LDL Cholesterol, Calculated 120 mg/dL; Potassium 4.3 mmol/L (3.5-5.1); Protein, Total 7.1 g/dL (6.0-8.3); Sodium 142 mmol/L (136-145); Triglycerides 69 mg/dL (Less than 150)
[2024-07-09] MEDS: Enoxaparin 40 MG (0.4 mL) SYRINGE SC SCH (09:17)
[2024-07-09] MEDS: Pantoprazole DR 40 MG TAB PO SCH (09:17)
[2024-07-09 12:17] LABS: Amphetamine Detected (NotDetected); Barbiturates Screen Not Detected (NotDetected); Benzodiazepine Screen Not Detected (NotDetected); Cocaine Metabolite Screen Not Detected (NotDetected); Methadone Not Detected (NotDetected); Methamphetamine Not Detected (NotDetected); Opiate Screen Not Detected (NotDetected); Oxycodone Screen Not Detected (NotDetected); Phencyclidine (PCP) Not Detected (NotDetected); THC/Cannabinoid Screen Not Detected (NotDetected); Tricyclic Screen Not Detected (NotDetected)
[2024-07-10 06:18] LABS: #Basophils 0.08 10x3/uL (0.0-0.2); %Basophils 0.9 % (0.0-1.0); %Eosinophils 7.6 % (0.0-10.0); %Lymphocytes 25.8 % (21.0-51.0); %Monocytes 10.9 % (0.0-10.0); %Neutrophils 54.6 % (42.0-75.0); Hematocrit 51.4 % (42.0-52.0); Hemoglobin 17.7 g/dL (14.0-18.0); Mean Corpuscular HGB CONC 34.4 g/dL (32.0-36.0); Mean Corpuscular Hemoglobin 31.8 pg (27.0-31.0); Mean Corpuscular Volume 92.3 fL (78.0-98.0); Mean Platelet Volume 10.4 fL (7.4-10.4); Platelet Count 301 10x3/uL (130-400); RBC Distribution Width 13.2 % (11.5-14.5); Red Blood Cell (RBC) Count 5.57 mill/uL (4.70-6.10)
[2024-07-10 06:33] LABS: ALT (SGPT) 34 U/L (8-55); AST (SGOT) 28 U/L (5-34); Albumin 3.6 g/dL (3.5-5.0); Alkaline Phosphatase 82 U/L (40-110); Anion Gap 16 mmol/L (10-20); BUN (Urea Nitrogen) 16 mg/dL (8.9-20.6); Bilirubin, Total 0.2 mg/dL (0.2-1.2); Calc. Creatinine Clearance 133 mL/min (70-130); Calcium 9.4 mg/dL (7.8-10.44); Carbon Dioxide 24 mmol/L (22-29); Chloride 105 mmol/L (98-107); Estimated GFR 103; Globulin 3.8 g/dL (2.4-3.5); Glucose 110 mg/dL (70-105); Potassium 4.5 mmol/L (3.5-5.1); Protein, Total 7.4 g/dL (6.0-8.3); Sodium 140 mmol/L (136-145)
[2024-07-10] MEDS ORDERED: Ondansetron ODT 4 MG TAB PO PRN (08:33)
[2024-07-10] MEDS ORDERED: Electrolyte Replacement Protocol 1 EACH FS SCH (08:45)
[2024-07-10] MEDS ORDERED: Electrolyte Replacement Protocol FS PRN (09:00)
[2024-07-10] MEDS: Folic Acid 1 MG TAB PO SCH (09:07)
[2024-07-10] MEDS: Thiamine HCl 200 MG/2 ML VIAL SLOW IVP SCH (09:07)
[2024-07-10] MEDS: Multivit, Therapeutic 1 TAB PO SCH (09:08)
[2024-07-10 10:18] LABS: Bilirubin, Direct 0.1 mg/dL (0.1-0.3); Phosphorus 3.3 mg/dL (2.3-4.7)
[2024-07-10] MEDS: Magnesium 2 GM/50 ML(in water) 2 GM in Premix 1 BAG IVPB SCH (13:12)
[2024-07-10] MEDS: Atorvastatin Calcium 40 MG TAB PO SCH (21:49)
[2024-07-11 05:12] LABS: %Eosinophils 6.8 % (0.0-10.0); %Lymphocytes 21.3 % (21.0-51.0); %Monocytes 11.9 % (0.0-10.0); %Neutrophils 58.4 % (42.0-75.0); Hematocrit 48.2 % (42.0-52.0); Mean Corpuscular HGB CONC 33.2 g/dL (32.0-36.0); Mean Corpuscular Volume 96.4 fL (78.0-98.0); Platelet Count 281 10x3/uL (130-400); RBC Distribution Width 13.4 % (11.5-14.5)
[2024-07-11 05:37] LABS: ALT (SGPT) 34 U/L (8-55); AST (SGOT) 23 U/L (5-34); Albumin 3.4 g/dL (3.5-5.0); Alkaline Phosphatase 86 U/L (40-110); Anion Gap 12 mmol/L (10-20); BUN (Urea Nitrogen) 13 mg/dL (8.9-20.6); Bilirubin, Total 0.2 mg/dL (0.2-1.2); Calc. Creatinine Clearance 115 mL/min (70-130); Calcium 9.3 mg/dL (7.8-10.44); Carbon Dioxide 26 mmol/L (22-29); Chloride 105 mmol/L (98-107); Estimated GFR 87; Globulin 3.4 g/dL (2.4-3.5); Glucose 111 mg/dL (70-105); Protein, Total 6.8 g/dL (6.0-8.3); Sodium 139 mmol/L (136-145)
[2024-07-12 05:54] LABS: #Basophils 0.11 10x3/uL (0.0-0.2); %Basophils 1.1 % (0.0-1.0); %Eosinophils 6.7 % (0.0-10.0); %Lymphocytes 24.5 % (21.0-51.0); %Monocytes 11.3 % (0.0-10.0); %Neutrophils 55.7 % (42.0-75.0); Hematocrit 47.6 % (42.0-52.0); Hemoglobin 16.1 g/dL (14.0-18.0); Mean Corpuscular HGB CONC 33.8 g/dL (32.0-36.0); Mean Corpuscular Hemoglobin 32.1 pg (27.0-31.0); Mean Platelet Volume 10.1 fL (7.4-10.4); Platelet Count 268 10x3/uL (130-400); RBC Distribution Width 13.2 % (11.5-14.5); Red Blood Cell (RBC) Count 5.01 mill/uL (4.70-6.10)
[2024-07-12 06:23] LABS: ALT (SGPT) 34 U/L (8-55); AST (SGOT) 22 U/L (5-34); Albumin 3.5 g/dL (3.5-5.0); Alkaline Phosphatase 76 U/L (40-110); Anion Gap 11 mmol/L (10-20); BUN (Urea Nitrogen) 22 mg/dL (8.9-20.6); Bilirubin, Total 0.3 mg/dL (0.2-1.2); Calc. Creatinine Clearance 112 mL/min (70-130); Calcium 9.5 mg/dL (7.8-10.44); Carbon Dioxide 30 mmol/L (22-29); Chloride 105 mmol/L (98-107); Estimated GFR 84; Globulin 3.5 g/dL (2.4-3.5); Glucose 119 mg/dL (70-105); Potassium 4.2 mmol/L (3.5-5.1); Sodium 142 mmol/L (136-145)
[2024-07-13 06:17] LABS: #Basophils 0.11 10x3/uL (0.0-0.2); %Basophils 1.1 % (0.0-1.0); %Lymphocytes 25.7 % (21.0-51.0); %Monocytes 11.6 % (0.0-10.0); %Neutrophils 53.8 % (42.0-75.0); Hemoglobin 16.2 g/dL (14.0-18.0); Mean Corpuscular HGB CONC 34.5 g/dL (32.0-36.0); Mean Corpuscular Hemoglobin 31.9 pg (27.0-31.0); Mean Corpuscular Volume 92.5 fL (78.0-98.0); Mean Platelet Volume 10.4 fL (7.4-10.4); Platelet Count 277 10x3/uL (130-400); RBC Distribution Width 13.2 % (11.5-14.5); Red Blood Cell (RBC) Count 5.08 mill/uL (4.70-6.10)
[2024-07-13 06:40] LABS: ALT (SGPT) 46 U/L (8-55); AST (SGOT) 32 U/L (5-34); Albumin 3.5 g/dL (3.5-5.0); Alkaline Phosphatase 81 U/L (40-110); Anion Gap 13 mmol/L (10-20); BUN (Urea Nitrogen) 18 mg/dL (8.9-20.6); Bilirubin, Total 0.3 mg/dL (0.2-1.2); Calc. Creatinine Clearance 135 mL/min (70-130); Calcium 9.1 mg/dL (7.8-10.44); Carbon Dioxide 27 mmol/L (22-29); Chloride 104 mmol/L (98-107); Estimated GFR 106; Globulin 3.5 g/dL (2.4-3.5); Glucose 114 mg/dL (70-105); Potassium 3.7 mmol/L (3.5-5.1); Sodium 140 mmol/L (136-145)
[2024-07-13] MEDS: Thiamine 100 MG TAB PO SCH (08:42)
[2024-07-13] MEDS ORDERED: Melatonin 3 MG TAB PO SCH (21:30)
[2024-07-13] MEDS: Melatonin 3 MG TAB PO PRN (21:50)
[2024-07-14 06:44] LABS: #Basophils 0.11 10x3/uL (0.0-0.2); %Basophils 1.1 % (0.0-1.0); %Eosinophils 6.6 % (0.0-10.0); %Lymphocytes 22.6 % (21.0-51.0); %Monocytes 11.7 % (0.0-10.0); %Neutrophils 57.2 % (42.0-75.0); Hematocrit 48.9 % (42.0-52.0); Hemoglobin 16.6 g/dL (14.0-18.0); Mean Corpuscular HGB CONC 33.9 g/dL (32.0-36.0); Mean Corpuscular Hemoglobin 32.1 pg (27.0-31.0); Mean Corpuscular Volume 94.6 fL (78.0-98.0); Mean Platelet Volume 10.3 fL (7.4-10.4); Platelet Count 274 10x3/uL (130-400); RBC Distribution Width 13.3 % (11.5-14.5); Red Blood Cell (RBC) Count 5.17 mill/uL (4.70-6.10)
[2024-07-14 06:54] LABS: ALT (SGPT) 82 U/L (8-55); AST (SGOT) 59 U/L (5-34); Albumin 3.6 g/dL (3.5-5.0); Alkaline Phosphatase 72 U/L (40-110); Anion Gap 14 mmol/L (10-20); BUN (Urea Nitrogen) 14 mg/dL (8.9-20.6); Bilirubin, Total 0.4 mg/dL (0.2-1.2); Calc. Creatinine Clearance 149 mL/min (70-130); Calcium 9.5 mg/dL (7.8-10.44); Carbon Dioxide 25 mmol/L (22-29); Chloride 106 mmol/L (98-107); Estimated GFR 117; Globulin 3.8 g/dL (2.4-3.5); Glucose 110 mg/dL (70-105); Potassium 4.7 mmol/L (3.5-5.1); Protein, Total 7.4 g/dL (6.0-8.3); Sodium 140 mmol/L (136-145)
[2024-07-15 04:55] LABS: #Basophils 0.12 10x3/uL (0.0-0.2); %Basophils 1.1 % (0.0-1.0); %Eosinophils 6.6 % (0.0-10.0); %Lymphocytes 25.7 % (21.0-51.0); %Monocytes 11.1 % (0.0-10.0); %Neutrophils 54.8 % (42.0-75.0); Hematocrit 46.3 % (42.0-52.0); Hemoglobin 15.8 g/dL (14.0-18.0); Mean Corpuscular HGB CONC 34.1 g/dL (32.0-36.0); Mean Corpuscular Hemoglobin 31.7 pg (27.0-31.0); Mean Platelet Volume 10.3 fL (7.4-10.4); Platelet Count 258 10x3/uL (130-400); RBC Distribution Width 13.2 % (11.5-14.5); Red Blood Cell (RBC) Count 4.98 mill/uL (4.70-6.10)
[2024-07-15 05:21] LABS: ALT (SGPT) 91 U/L (8-55); AST (SGOT) 53 U/L (5-34); Albumin 3.5 g/dL (3.5-5.0); Alkaline Phosphatase 82 U/L (40-110); Anion Gap 13 mmol/L (10-20); BUN (Urea Nitrogen) 16 mg/dL (8.9-20.6); Bilirubin, Total 0.3 mg/dL (0.2-1.2); Calc. Creatinine Clearance 140 mL/min (70-130); Calcium 8.9 mg/dL (7.8-10.44); Carbon Dioxide 23 mmol/L (22-29); Chloride 107 mmol/L (98-107); Estimated GFR 113; Globulin 3.3 g/dL (2.4-3.5); Glucose 132 mg/dL (70-105); Potassium 4.1 mmol/L (3.5-5.1); Protein, Total 6.8 g/dL (6.0-8.3); Sodium 139 mmol/L (136-145)
[2024-07-15 14:53] LABS: Amphetamine Not Detected (NotDetected); Barbiturates Screen Not Detected (NotDetected); Benzodiazepine Screen Not Detected (NotDetected); Cocaine Metabolite Screen Not Detected (NotDetected); Methadone Not Detected (NotDetected); Methamphetamine Not Detected (NotDetected); Opiate Screen Not Detected (NotDetected); Oxycodone Screen Not Detected (NotDetected); Phencyclidine (PCP) Not Detected (NotDetected); THC/Cannabinoid Screen Not Detected (NotDetected); Tricyclic Screen Not Detected (NotDetected)
[2024-07-16] MEDS: Melatonin 3 MG TAB PO PRN (04:03)
[2024-07-16 06:19] LABS: #Basophils 0.13 10x3/uL (0.0-0.2); %Basophils 1.3 % (0.0-1.0); %Eosinophils 6.9 % (0.0-10.0); %Lymphocytes 25.2 % (21.0-51.0); %Monocytes 11.1 % (0.0-10.0); %Neutrophils 54.7 % (42.0-75.0); Hemoglobin 15.6 g/dL (14.0-18.0); Mean Corpuscular HGB CONC 33.9 g/dL (32.0-36.0); Mean Corpuscular Hemoglobin 31.8 pg (27.0-31.0); Mean Corpuscular Volume 93.7 fL (78.0-98.0); Mean Platelet Volume 10.5 fL (7.4-10.4); Platelet Count 259 10x3/uL (130-400); RBC Distribution Width 13.2 % (11.5-14.5); Red Blood Cell (RBC) Count 4.91 mill/uL (4.70-6.10)
[2024-07-16 06:42] LABS: ALT (SGPT) 125 U/L (8-55); AST (SGOT) 65 U/L (5-34); Albumin 3.7 g/dL (3.5-5.0); Alkaline Phosphatase 86 U/L (40-110); Anion Gap 15 mmol/L (10-20); BUN (Urea Nitrogen) 17 mg/dL (8.9-20.6); Bilirubin, Total 0.4 mg/dL (0.2-1.2); Calc. Creatinine Clearance 109 mL/min (70-130); Calcium 9.6 mg/dL (7.8-10.44); Carbon Dioxide 27 mmol/L (22-29); Chloride 103 mmol/L (98-107); Estimated GFR 84; Globulin 3.4 g/dL (2.4-3.5); Glucose 146 mg/dL (70-105); Potassium 3.9 mmol/L (3.5-5.1); Protein, Total 7.1 g/dL (6.0-8.3); Sodium 141 mmol/L (136-145)
[2024-07-16 10:55] VITALS: BMI 28.2
[2024-07-16] MEDS: Acetaminophen 325 MG TAB PO PRN (11:08)
[2024-07-17 04:38] LABS: #Basophils 0.12 10x3/uL (0.0-0.2); %Eosinophils 5.8 % (0.0-10.0); %Lymphocytes 21.1 % (21.0-51.0); %Neutrophils 59.4 % (42.0-75.0); Hemoglobin 16.5 g/dL (14.0-18.0); Mean Corpuscular HGB CONC 33.7 g/dL (32.0-36.0); Mean Corpuscular Hemoglobin 31.6 pg (27.0-31.0); Mean Corpuscular Volume 93.9 fL (78.0-98.0); Mean Platelet Volume 10.4 fL (7.4-10.4); Platelet Count 261 10x3/uL (130-400); RBC Distribution Width 13.3 % (11.5-14.5); Red Blood Cell (RBC) Count 5.22 mill/uL (4.70-6.10)
[2024-07-17 05:12] LABS: ALT (SGPT) 115 U/L (8-55); AST (SGOT) 51 U/L (5-34); Albumin 3.8 g/dL (3.5-5.0); Alkaline Phosphatase 82 U/L (40-110); Anion Gap 13 mmol/L (10-20); BUN (Urea Nitrogen) 26 mg/dL (8.9-20.6); Bilirubin, Total 0.3 mg/dL (0.2-1.2); Calc. Creatinine Clearance 95 mL/min (70-130); Calcium 9.1 mg/dL (7.8-10.44); Carbon Dioxide 26 mmol/L (22-29); Chloride 102 mmol/L (98-107); Estimated GFR 71; Globulin 3.7 g/dL (2.4-3.5); Glucose 110 mg/dL (70-105); Potassium 3.9 mmol/L (3.5-5.1); Protein, Total 7.5 g/dL (6.0-8.3); Sodium 137 mmol/L (136-145)
[2024-07-17 15:32] VITALS: BP 136/61; TEMP 98.5
== END 2024-07-17 15:48 | disposition home or self-care (01) | DRG 315 ==
LOC: ERS 11:06 → ERHOLD 13:40 → 2NO 20:27 → OBSVTOIN 07-09 17:21
PROVIDERS: ADMIT Student in an Organized Health Care Education/Training Program; ATTEND Student in an Organized Health Care Education/Training Program
DX: I42.9 Cardiomyopathy, unspecified (principal); I50.22 Chronic systolic (congestive) heart failure; F14.90 Cocaine use, unspecified, uncomplicated; R74.01 Elevation of levels of liver transaminase levels; Z66 Do not resuscitate; F15.90 Other stimulant use, unspecified, uncomplicated; Z79.899 Other long term (current) drug therapy; Z91.199 Patient's noncompliance with other medical treatment and regimen due to unspecified reason
CPT/HCPCS: 36415; 71045; 80053; 80061; 80306; 80307; 82248; 83036; 83690; 83735; 83880; 84100; 84443; 84484; 85025; 93005; 93010; 93306; 96361; 96372; 96374; G0378; J1650; J3411; J3475; J3490

== ENCOUNTER 2024-09-06 09:24 | Emergency (ER) | payer OTHER ==
[2024-09-06 10:02] LABS: #Basophils 0.09 10x3/uL (0.0-0.2); %Basophils 1.2 % (0.0-1.0); %Eosinophils 5.8 % (0.0-10.0); %Lymphocytes 22.7 % (21.0-51.0); Hematocrit 42.5 % (42.0-52.0); Hemoglobin 14.7 g/dL (14.0-18.0); Mean Corpuscular HGB CONC 34.6 g/dL (32.0-36.0); Mean Corpuscular Hemoglobin 31.9 pg (27.0-31.0); Mean Corpuscular Volume 92.2 fL (78.0-98.0); Platelet Count 289 10x3/uL (130-400); RBC Distribution Width 13.4 % (11.5-14.5); Red Blood Cell (RBC) Count 4.61 mill/uL (4.70-6.10)
[2024-09-06 10:32] LABS: Troponin I Less than 0.010 ng/mL (< 0.028)
[2024-09-06 10:40] LABS: ALT (SGPT) 26 U/L (8-55); AST (SGOT) 19 U/L (5-34); Albumin 3.8 g/dL (3.5-5.0); Alkaline Phosphatase 83 U/L (40-110); Anion Gap 13 mmol/L (10-20); BUN (Urea Nitrogen) 19 mg/dL (8.9-20.6); Bilirubin, Total 0.2 mg/dL (0.2-1.2); Calc. Creatinine Clearance 0 mL/min (70-130); Calcium 8.8 mg/dL (7.8-10.44); Carbon Dioxide 23 mmol/L (22-29); Chloride 110 mmol/L (98-107); Estimated GFR 115; Globulin 3.3 g/dL (2.4-3.5); Glucose 115 mg/dL (70-105); Lipase 45 U/L (8-78); Potassium 4.2 mmol/L (3.5-5.1); Protein, Total 7.1 g/dL (6.0-8.3); Sodium 142 mmol/L (136-145)
[2024-09-06] MEDS ORDERED: Nitroglycerin 0.4 MG TAB 1 EACH ONE (10:41)
[2024-09-06] MEDS ORDERED: Aspirin Chewable 81 MG TAB ONE (10:41)
== END 2024-09-06 12:32 | disposition home or self-care (01) ==
LOC: ERS 09:24
DX: M79.601 Pain in right arm (principal); R07.9 Chest pain, unspecified; R29.818 Other symptoms and signs involving the nervous system; F17.290 Nicotine dependence, other tobacco product, uncomplicated
CPT/HCPCS: 36415; 71045; 80053; 83690; 83880; 84484; 85025; 85379; 93005; 94760

== ENCOUNTER 2024-11-06 14:02 | Emergency (ER) | payer OTHER ==
[~2024-11-06 14:02] MED LIST: Iopamidol-370 76% 500 ML MDV (1 ML CHARGE) ONE
[2024-11-06 15:51] LABS: #Basophils 0.07 10x3/uL (0.0-0.2); %Basophils 0.8 % (0.0-1.0); %Eosinophils 3.8 % (0.0-10.0); %Lymphocytes 19.4 % (21.0-51.0); %Monocytes 10.3 % (0.0-10.0); %Neutrophils 65.4 % (42.0-75.0); Hematocrit 39.7 % (42.0-52.0); Hemoglobin 13.9 g/dL (14.0-18.0); Mean Corpuscular Volume 91.5 fL (78.0-98.0); Mean Platelet Volume 9.5 fL (7.4-10.4); Platelet Count 286 10x3/uL (130-400); RBC Distribution Width 12.9 % (11.5-14.5); Red Blood Cell (RBC) Count 4.34 mill/uL (4.70-6.10)
[2024-11-06] MEDS ORDERED: Dexamethasone 10 MG/ML VIAL ONE (16:06)
[2024-11-06] MEDS ORDERED: Ibuprofen 200 MG TAB ONE ×2 (16:06→16:07)
[2024-11-06 16:16] LABS: ALT (SGPT) 22 U/L (8-55); AST (SGOT) 17 U/L (5-34); Albumin 3.5 g/dL (3.5-5.0); Alkaline Phosphatase 76 U/L (40-110); Anion Gap 9 mmol/L (10-20); BUN (Urea Nitrogen) 17 mg/dL (8.9-20.6); Bilirubin, Total 0.5 mg/dL (0.2-1.2); Calc. Creatinine Clearance 0 mL/min (70-130); Calcium 8.5 mg/dL (7.8-10.44); Carbon Dioxide 26 mmol/L (22-29); Chloride 105 mmol/L (98-107); Estimated GFR 87; Globulin 3.5 g/dL (2.4-3.5); Glucose 73 mg/dL (70-105); Potassium 3.8 mmol/L (3.5-5.1); Sodium 136 mmol/L (136-145)
[2024-11-06] MEDS ORDERED: Ampicillin/Sulbactam 1.5 GM VIAL ONE (17:01)
[2024-11-06] MEDS ORDERED: Sodium Chloride 0.9% 100 ML ONE (17:02)
== END 2024-11-06 18:15 | disposition home or self-care (01) ==
LOC: ERS 14:02
DX: M27.2 Inflammatory conditions of jaws (principal); Z79.82 Long term (current) use of aspirin; Z79.899 Other long term (current) drug therapy
CPT/HCPCS: 36415; 70487; 80053; 83605; 85025; 87040; 96374; 96375; J0295; J1100; Q9967

== ENCOUNTER 2024-11-10 14:32 | Emergency (ER) | payer OTHER ==
[2024-11-10 15:18] LABS: #Basophils 0.07 10x3/uL (0.0-0.2); %Basophils 0.7 % (0.0-1.0); %Lymphocytes 15.4 % (21.0-51.0); %Monocytes 12.8 % (0.0-10.0); %Neutrophils 68.7 % (42.0-75.0); Hematocrit 46.8 % (42.0-52.0); Hemoglobin 16.1 g/dL (14.0-18.0); Mean Corpuscular HGB CONC 34.4 g/dL (32.0-36.0); Mean Corpuscular Hemoglobin 31.6 pg (27.0-31.0); Mean Corpuscular Volume 91.8 fL (78.0-98.0); Mean Platelet Volume 9.7 fL (7.4-10.4); Platelet Count 316 10x3/uL (130-400); RBC Distribution Width 12.9 % (11.5-14.5)
[2024-11-10 15:34] LABS: ALT (SGPT) 29 U/L (8-55); AST (SGOT) 17 U/L (5-34); Albumin 3.7 g/dL (3.5-5.0); Alkaline Phosphatase 77 U/L (40-110); Anion Gap 13 mmol/L (10-20); BUN (Urea Nitrogen) 14 mg/dL (8.9-20.6); Bilirubin, Total 0.4 mg/dL (0.2-1.2); Calc. Creatinine Clearance 0 mL/min (70-130); Calcium 8.4 mg/dL (7.8-10.44); Carbon Dioxide 23 mmol/L (22-29); Chloride 106 mmol/L (98-107); Estimated GFR 104; Globulin 4.2 g/dL (2.4-3.5); Glucose 104 mg/dL (70-105); Potassium 3.5 mmol/L (3.5-5.1); Protein, Total 7.9 g/dL (6.0-8.3); Sodium 138 mmol/L (136-145)
[2024-11-10] MEDS ORDERED: Lidocaine/Transparent Dressing 1 EACH KIT ONE (16:25)
[2024-11-10] MEDS ORDERED: Lidocaine 1% PF 5 ML VIAL ONE (16:25)
[2024-11-10 17:00] LABS: Troponin I Less than 0.010 ng/mL (< 0.028)
== END 2024-11-10 18:15 | disposition home or self-care (01) ==
LOC: ERS 14:32
DX: K04.7 Periapical abscess without sinus (principal); R07.9 Chest pain, unspecified; Z87.891 Personal history of nicotine dependence
CPT/HCPCS: 36415; 41800; 70487; 71045; 80053; 83605; 84484; 85025; 93005; Q9967

== ENCOUNTER 2025-09-27 11:29 | Emergency (ER) | payer OTHER, SELFPAY ==
[2025-09-27 13:09] LABS: #Basophils 0.08 10x3/uL (0.0-0.2); #Eosinophils 0.45 10x3/uL (0.0-0.7); #Monocytes 0.95 10x3/uL (0.11-0.59); #Neutrophils 6.62 10x3/uL (1.40-6.50); %Basophils 0.9 % (0.0-1.0); %Eosinophils 5.0 % (0.0-10.0); %Lymphocytes 9.5 % (21.0-51.0); %Monocytes 10.6 % (0.0-10.0); %Neutrophils 73.7 % (42.0-75.0); Hematocrit 44.6 % (42.0-52.0); Hemoglobin 14.6 g/dL (14.0-18.0); Mean Corpuscular Hemoglobin 30.1 pg (27.0-31.0); Mean Corpuscular Volume 92.0 fL (78.0-98.0); Platelet Count 315 10x3/uL (130-400); Red Blood Cell (RBC) Count 4.85 mill/uL (4.70-6.10); White Blood Cell (WBC) Count 8.98 10x3/uL (4.8-10.8)
[2025-09-27 13:26] LABS: ALT (SGPT) 32 U/L (Less than 45); AST (SGOT) 18 U/L (11-34); Albumin 3.9 g/dL (3.1-4.5); Alkaline Phosphatase 103 U/L (40-110); Anion Gap 15 mmol/L (10-20); BUN (Urea Nitrogen) 11 mg/dL (8.9-20.6); Bilirubin, Total 0.5 mg/dL (0.3-1.2); Calc. Creatinine Clearance 0 mL/min (70-130); Calcium 9.3 mg/dL (7.8-10.44); Carbon Dioxide 25 mmol/L (22-29); Chloride 105 mmol/L (98-107); Globulin 3.3 g/dL (2.4-3.5); Glucose 122 mg/dL (70-105); Potassium 4.2 mmol/L (3.5-5.1); Sodium 141 mmol/L (136-145)
== END 2025-09-27 16:40 | disposition home or self-care (01) ==
LOC: ERS 11:29
DX: J06.9 Acute upper respiratory infection, unspecified (principal); B97.89 Other viral agents as the cause of diseases classified elsewhere; I11.0 Hypertensive heart disease with heart failure; I50.9 Heart failure, unspecified; F17.290 Nicotine dependence, other tobacco product, uncomplicated
CPT/HCPCS: 71045; 80053; 83880; 84484; 85025; 87428; 93005